=== PATIENT | male | born 1960 | race Caucasian/White ===

== ENCOUNTER 2023-02-01 15:10 | Emergency (ER) | payer BC, MEDICAID, OTHER ==
[~2023-02-01] VITALS: Ht 157.5 cm; Wt 61.0 kg
[2023-02-01 15:18] VITALS: BP 194/105; O2SAT 97
[2023-02-01 16:16] LABS: CHLORIDE 103 mEq/L (98-107); INDEX HEMOLYSI 1 (1-3); INDEX ICTERIC 1 (1-4); INDEX LIPEMIC 2 (1-3); POTASSIUM 3.4 mEq/L (3.5-5.1); SODIUM 136 mEq/L (136-145)
[2023-02-01 16:17] LABS: BASOPHILS % 0.1 % (0.0-2.0); EOSINOPHILS % 0.5 % (0.0-5.0); HEMATOCRIT. 47.2 % (42.0-52.0); HEMOGLOBIN. 16.2 g/dL (14.0-18.0); LYMPHOCYTES % 21.1 % (20.0-50.0); MEAN CORPUSCULAR HEMOGLOBIN 30.3 pg (28.0-32.0); MEAN CORPUSCULAR HGB CONC 34.4 g/dL (31.0-37.0); MEAN CORPUSCULAR VOLUME 87.9 fL (80.0-94.0); MEAN PLATELET VOLUME 8.2 fl (7.4-10.4); MONOCYTES % 8.2 % (2.0-8.0); NEUTROPHILS % 70.1 % (40.0-76.0); PLATELET 238 x1000/uL (130-400); RED BLOOD CELL COUNT 5.36 mill/uL (4.7-6.1); RED CELL DISTRIBUTION WIDTH 13.9 % (11.6-14.6); WHITE BLOOD COUNT 7.4 x1000/uL (4.5-11.0)
[2023-02-01 16:26] LABS: ALANINE AMINOTRANSFERASE 51 IU/L (13-61); ALBUMIN 4.5 g/dL (3.4-5.0); ASPARTATE AMINOTRANSFERASE 20 IU/L (15-37); BILIRUBIN TOTAL 0.9 mg/dL (0.1-1.0); CALCIUM 9.5 mg/dL (8.5-10.1); CARBON DIOXIDE 27 mEq/L (21-32); CREATININE 0.8 mg/dL (0.6-1.3); GLUCOSE 122 mg/dL (70-105); PROTEIN TOTAL 8.2 g/dL (6.0-8.3); UREA NITROGEN BLOOD 10 mg/dL (7-21)
[2023-02-01] MEDS ORDERED: METOCLOPRAMIDE HCL 10MG/2ML VIAL IV ONE (17:15)
[2023-02-01] MEDS ORDERED: ACETAMINOPHEN 325MG TABLET PO ONE (17:15)
[2023-02-01] MEDS ORDERED: ACETAMINOPHEN 325MG TABLET PO NR (20:30)
[2023-02-01] MEDS ORDERED: METOCLOPRAMIDE HCL 10MG/2ML VIAL IV NR (20:30)
[2023-02-01 20:54] LABS: CLARITY URINE CLEAR (CLEAR); COLOR URINE YELLOW (YELLOW); GLUCOSE URINE 2+ (NEGATIVE); KETONES URINE TRACE (NEGATIVE); LEUKOCYTE ESTERASE URINE NEGATIVE (NEGATIVE); NITRITE URINE NEGATIVE (NEGATIVE); OCCULT BLOOD URINE NEGATIVE (NEGATIVE); PROTEIN URINE 1+ (NEGATIVE); SPECIFIC GRAVITY URINE 1.018 (1.005-1.030)
[2023-02-01 20:57] LABS: YEAST URINE NONE SEEN
[2023-02-01 21:09] LABS: BACTERIA URINE 1+; RBC URINE 0-2 /hpf (0-2); SQUAMOUS EPITHELIAL CELL URINE FEW /lpf (RARE/1+); WBC URINE 0-2 /hpf (0-2)
[2023-02-02 02:13] VITALS: PULSE 75; RESP 20; TEMP 98.6
== END 2023-02-02 02:14 | disposition home or self-care (01) ==
LOC: ER 15:36
DX: R51.9 Headache, unspecified (principal)
CPT/HCPCS: 99285; 96374; 70450; 80053; 81003; 85025; 36415; J2765